=== PATIENT | female | born 1990 | race Hispanic/Latino ===

== ENCOUNTER 2017-12-30 20:13 | Emergency (ER) | payer OTHER ==
[2017-12-30 20:36] VITALS: RESP 18; O2SAT 99
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
[2017-12-30 21:35] VITALS: BP 122/70; PULSE 72; TEMP 98
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
== END 2017-12-30 21:34 | disposition home or self-care (01) ==
LOC: H.ER 20:13
DX: S09.90XA Unspecified injury of head, initial encounter (principal); W22.8XXA Striking against or struck by other objects, initial encounter; Y92.89 Other specified places as the place of occurrence of the external cause

== ENCOUNTER 2018-04-03 02:52 | Emergency (ER) | payer SELFPAY ==
[2018-04-03 03:05] VITALS: BMI 22.1
[2018-04-03 03:06] VITALS: BP 113/67; PULSE 81; RESP 18; TEMP 97.7; O2SAT 99
--- NOTE | 2018-04-03 04:04 | ED PDOC ---
HPI: General Adult Time Seen by Provider: 04/03/18 03:31 Chief Complaint (Nursing): Needle Stick Chief Complaint (Provider): possible needle stick History Per: Patient History/Exam Limitations: no limitations Onset/Duration Of Symptoms: Hrs Additional Complaint(s): 27 y/o female presents for evaluation of possible needle stick x 8 hours. 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 Patient is unsure what instrument poked her but states there was blood on most of them. Patient states she did not notice bleeding or puncture wound on her skin but presents requesting PEP. Patient does not know status of source patient and did not report incident at work. Past Medical History Reviewed: Historical Data, Nursing Documentation, Vital Signs Vital Signs: Last Vital Signs Temp 97.7 F 04/03/18 03:08 Pulse 81 04/03/18 03:08 Resp 18 04/03/18 03:08 BP 113/67 04/03/18 03:08 Pulse Ox 99 04/03/18 03:08 - Medical History PMH: No Chronic Diseases - Surgical History Surgical History: No Surg Hx - Family History Family History: States: Unknown Family Hx - Home Medications Home Medications: Ambulatory Orders Medication Instructions Recorded Dolutegravir Sodium [Tivicay] 50 mg PO DAILY #28 tab 04/03/18 Emtricitabine/Tenofovir Diso 1 tab PO DAILY #28 tab 04/03/18 [Truvada 200 MG-300 MG] - Allergies Allergies/Adverse Reactions: Allergies Allergy/AdvReac Type Severity Reaction Status Date / Time No Known Allergies Allergy Verified 04/03/18 03:14 Review of Systems ROS Statement: Except As Marked, All Systems Reviewed And Found Negative Physical Exam - Reviewed Nursing Documentation Reviewed: Yes Vital Signs Reviewed: Yes - Physical Exam Appears: Positive for: Well, Non-toxic, No Acute Distress Cardiovascular/Chest: Positive for: Regular Rate, Rhythm Respiratory: Positive for: Normal Breath Sounds Extremity: Positive for: Normal ROM, Other (no abrasions, puncture wounds, edema noted to left hand 3rd digitr). Negative for: Swelling Neurologic/Psych: Positive for: Alert, Oriented (x3) - ECG O2 Sat by Pulse Oximetry: 99 - Progress ED Course And Treament: Patient educated that low risk as no skin break noted. Patient requesting PEP as she feels that something poked her. Patient educated on side effects of PEP medications. Patient was advised to follow up in am to check status of source patient; rx Truvada and Tivicay provided with instructions to start if unable to obtain source patient status Advised follow up with PMD tomorrow and in 2 weeks for lab testing if medications started Return precautions given - Core Measure Core Measure Indicators: Chest Pain Disposition - Clinical Impression Clinical Impression: Needle stick injury Counseled Patient/Family Regarding: Studies Performed, Diagnosis, Need For Followup - Disposition Disposition: Routine/Home Disposition Time: 04:06 Condition: IMPROVED Prescriptions: Dolutegravir Sodium [Tivicay] 50 mg PO DAILY #28 tab Emtricitabine/Tenofovir Diso [Truvada 200 MG-300 MG] 1 tab PO DAILY #28 tab Instructions: Emtricitabine and Tenofovir Disoproxil Fumarate, Dolutegravir
[2018-04-03 04:40] LABS: ALB/GLOB RATIO 1.2 (1.0-2.1); ALBUMIN 4.5 g/dL (3.5-5.0); BILIRUBIN,DIRECT 0.2 mg/ml (0.0-0.4)
[2018-04-03 16:26] LABS: HEPATITIS B SURFACE AG Negative (NEGATIVE)
[2018-04-03 16:32] LABS: HEPATITIS A IGM NEGATIVE (NEGATIVE); HEPATITIS B CORE AB NEGATIVE (NEGATIVE)
[2018-04-03 16:42] LABS: HEPATITIS C ANTIBODY NEGATIVE (NEGATIVE)
== END 2018-04-03 05:25 | disposition home or self-care (01) ==
LOC: H.ER 02:52
DX: R07.9 Chest pain, unspecified (principal); Z77.21 Contact with and (suspected) exposure to potentially hazardous body fluids; W46.0XXA Contact with hypodermic needle, initial encounter; Y99.0 Civilian activity done for income or pay